=== PATIENT | female | born 2000 | race African-American/Black ===

== ENCOUNTER 2020-02-01 09:36 | Inpatient (IN) ==
[2020-02-01] MEDS ORDERED: LACTATED RINGERS 500 ML IV PRN (10:24)
[2020-02-01] MEDS ORDERED: ONDANSETRON 4 MG/2 ML VIAL IV PRN ×2 (10:24→16:16)
[2020-02-01] MEDS ORDERED: BUTORPHANOL 2 MG/ML VIAL IV PRN (10:24)
[2020-02-01] MEDS ORDERED: MEPERIDINE 50 MG/1 ML VIAL IV PRN (10:24)
[2020-02-01] MEDS ORDERED: ePHEDrine 50 MG/ML VIAL IV PRN (10:28)
[2020-02-01] MEDS ORDERED: NALOXONE 0.4 MG/ML VIAL IV PRN (10:28)
[2020-02-01] MEDS ORDERED: CITRIC ACID/SODIUM CITRATE 30 ML UDCUP PO ONE (10:28)
[2020-02-01] MEDS ORDERED: FAMOTIDINE 20 MG/2 ML VIAL IV ONE (10:28)
[2020-02-01] MEDS ORDERED: hydrOXYzine HCL 25 MG/1 ML VIAL IM PRN (10:28)
[2020-02-01] MEDS ORDERED: PROMETHAZINE 25 MG/1 ML VIAL IM PRN (10:28)
[2020-02-01] MEDS ORDERED: diphenhydrAMINE 50 MG/1 ML VIAL IV PRN ×2 (10:28)
[2020-02-01] MEDS ORDERED: fentaNYL 2 MCG/ROPIV 0.2% EPID 100 ML EPIDURAL SCH (10:30)
[2020-02-01 10:41] LABS: Basophils % 0.2 % (0.0-0.8); Eosinophils # 0.1 10*3/uL (0.0-0.87); Eosinophils % 0.7 % (0.00-10.9); Hematocrit 30.7 VOL% (35.7-47.0); Hemoglobin 9.5 GM/DL (12.0-16.0); Immature Granulocytes % 0.9 %; Immature Granulocytes Absolute 0.11 #; Lymphocytes % 16.5 % (21.3-54.2); Mean Corpuscular HGB Conc 30.9 GM/DL (32-36); Mean Corpuscular Volume 64.2 FL (87-102); Mean Platelet Volume 11.7 FL (9.6-12.0); Monocytes % 10.4 % (1.7-12.7); Neutrophils % 71.3 % (38.7-73.9); Platelet Count 230 T/CUMM (130-400); Red Blood Count 4.78 MC/CUMM (3.8-5.5)
[2020-02-01 11:17] LABS: Hypochromasia 1+; Microcytosis 1+; Ovalocytes Slight; Platelet Estimate Adequate
[2020-02-01] MEDS: LACTATED RINGERS 1,000 ML IV SCH ×2 (11:19→14:35)
[2020-02-01] MEDS ORDERED: LIDOCAINE 1% 50 ML VIAL ONE (14:37)
[2020-02-01] MEDS ORDERED: CARBOPROST TROMETHAMINE 250 MCG/ML AMP IM ONE (14:37)
[2020-02-01] MEDS ORDERED: METHYLERGONOVINE 0.2 MG/1 ML AMP ONE (14:37)
[2020-02-01] MEDS ORDERED: OXYTOCIN/LR 20 UNIT/1,000 ML BAG IV ONE ×2 (14:37→16:16)
[2020-02-01] MEDS ORDERED: OXYTOCIN/LR 20 UNIT/1,000 ML BAG IV SCH (15:05)
[2020-02-01 15:50] LABS: Cord Arterial Blood HCO3 21.4 MMOL/L
[2020-02-01 15:53] LABS: Cord Venous Blood HCO3 22.2 MMOL/L; Cord Venous Blood PCO2 42.3 MMHG
[2020-02-01] MEDS ORDERED: WITCH HAZEL PADS 100/JAR TOP PRN (16:16)
[2020-02-01] MEDS ORDERED: LANOLIN 50% CREAM 0.3 OZ TUBE TOP PRN (16:16)
[2020-02-01] MEDS ORDERED: IBUPROFEN 800 MG TABLET PO PRN (16:16)
[2020-02-01] MEDS ORDERED: ACETAMINOPHEN 325 MG TABLET PO PRN (16:16)
[2020-02-01] MEDS ORDERED: DIPH/TET/ACEL PERT BOOSTER VACCINE 0.5 ML VIAL IM ONE (16:16)
[2020-02-01] MEDS ORDERED: BISACODYL 10 MG SUPP RECTAL PRN (16:16)
[2020-02-01] MEDS ORDERED: HYDROCORTISONE 2.5% RECTAL CREAM 30 GM TUBE TOP PRN (16:16)
[2020-02-01] MEDS ORDERED: BENZOCAINE 20%/MENTHOL 0.5% SPRAY 56 GM CAN TOP PRN (16:16)
[2020-02-01] MEDS ORDERED: ACETAMINOPHEN/CODEINE 300-30 MG TABLET PO PRN (16:19)
[2020-02-01 19:21] LABS: Apearance,Urine Slightly Hazy (Clear); Bilirubin,Urine Negative (Negative); Blood, Urine Large mg/dL (Negative); Glucose,Urine (UA) Negative (Negative); Ketones,Urine 5 mg/dL (Negative); Mucus,Urine Many /LPF (Occasional); Nitrite,Urine Negative (Negative); Protein,Urine 30 MG/DL; RBC,Urine 904 /HPF (0-4); Squamous Epithelial Cell,Urine Occasional /HPF (0-10); Urine Color Yellow (Yellow); Urine Specific Gravity 1.012 (1.001-1.035); Urine Urobilinogen < 2.0 EU/DL (0.2-1.0)
[2020-02-01] MEDS: DOCUSATE SODIUM 100 MG CAPSULE PO SCH (21:51)
[2020-02-01] MEDS: FERROUS SULFATE 325 MG TABLET PO SCH (21:52)
[2020-02-02 05:11] LABS: Basophils % 0.3 % (0.0-0.8); Eosinophils # 0.1 10*3/uL (0.0-0.87); Eosinophils % 0.4 % (0.00-10.9); Hematocrit 29.2 VOL% (35.7-47.0); Immature Granulocytes % 0.5 %; Immature Granulocytes Absolute 0.08 #; Lymphocytes # 3.2 10*3/uL (1.4-4.0); Lymphocytes % 21.2 % (21.3-54.2); Mean Corpuscular HGB Conc 30.8 GM/DL (32-36); Mean Corpuscular Volume 63.6 FL (87-102); Monocytes % 10.7 % (1.7-12.7); Neutrophils % 66.9 % (38.7-73.9); Platelet Count 214 T/CUMM (130-400); Red Blood Count 4.59 MC/CUMM (3.8-5.5); Red Cell Distribution Width 15.9 % (9.3-17.3); White Blood Count 14.9 T/CUMM (4-12)
[2020-02-02 05:40] LABS: Hypochromasia 1+; Microcytosis Slight; Platelet Estimate Adequate
[2020-02-02] MEDS: FERROUS SULFATE 325 MG TABLET PO SCH ×2 (09:55→19:35)
[2020-02-02] MEDS: MULTIVITAMIN (PRENATAL) TABLET PO SCH (09:55)
[2020-02-02] MEDS: DOCUSATE SODIUM 100 MG CAPSULE PO SCH ×2 (09:55→19:35)
[2020-02-03 08:12] VITALS: BP 130/79
[2020-02-03] MEDS: MULTIVITAMIN (PRENATAL) TABLET PO SCH (09:30)
[2020-02-03] MEDS: FERROUS SULFATE 325 MG TABLET PO SCH (09:31)
[2020-02-03] MEDS: DOCUSATE SODIUM 100 MG CAPSULE PO SCH (09:31)
== END 2020-02-03 12:35 | disposition home or self-care (01) | DRG 807 ==
LOC: N.LDOUT 09:36 → N.OB 09:38 → N.LD 10:45 → N.OB 20:25
PROVIDERS: ADMIT Obstetrics & Gynecology; ATTEND Obstetrics & Gynecology